=== PATIENT | male | born 1965 | race Caucasian/White ===

== ENCOUNTER 2020-10-02 14:14 | Emergency (ER) | payer BC ==
[2020-10-02 14:33] VITALS: TEMP 97.8
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
[2020-10-02 15:58] VITALS: RESP 18
[2020-10-02] MEDS ORDERED: LIDOCAINE 1% INJ 10MG/ML (20 ML MDV) SQ ONE (15:59)
[2020-10-02] MEDS ORDERED: HYDROcodone/APAP 5-325MG 1 EACH TAB PO STA (16:09)
[2020-10-02] MEDS ORDERED: BACITRACIN OINT 1 EACH PACKET TOPICAL ONE (17:24)
[2020-10-02 17:32] VITALS: BP 136/97; PULSE 82
== END 2020-10-02 17:28 | disposition home or self-care (01) ==
LOC: EC 14:14
DX: S63.291A Dislocation of distal interphalangeal joint of left index finger, initial encounter (principal); I10 Essential (primary) hypertension; Y04.2XXA Assault by strike against or bumped into by another person, initial encounter
CPT/HCPCS: 99284; 26770; 73140; J2001; 99283